=== PATIENT | male | born 1960 | race Caucasian/White ===

== ENCOUNTER 2021-09-01 07:24 | Day surgery (SDC) | payer BC ==
[2021-08-30 10:21] VITALS: BMI 31.4
[~2021-09-01 07:24] MED LIST: LACTATED RINGERS 1,000 ML IV SCH; LIDOCAINE 1% (10MG/ML) FOR IV START INTRADERMA PRN
[2021-09-01 07:45] VITALS: TEMP 98.1
--- NOTE | 2021-09-01 08:17 | P.GSHP ---
History of Present Illness H&P Date: 09/01/21 Chief Complaint: Screening colonoscopy This a 61-year-old male who presents today for screening colonoscopy. Patient denies a significant GI complaints. Past Medical History Past Medical History: Cancer Additional Past Medical History / Comment(s): melanoma skin cancer, states had covid test yesterday that was neg. History of Any Multi-Drug Resistant Organisms: None Reported Past Surgical History: Joint Replacement Additional Past Surgical History / Comment(s): right hip replaced Past Anesthesia/Blood Transfusion Reactions: No Reported Reaction Smoking Status: Former smoker Medications and Allergies Home Medications Medication Instructions Recorded Confirmed Type Multivitamins, Thera [Multivitamin 1 tab PO DAILY 08/30/21 09/01/21 History (formulary)] Berkey-3 Fatty Acids/Fish Oil [Fish 1 each PO DAILY 08/30/21 09/01/21 History Oil 1,000 mg Softgel] Allergies Allergy/AdvReac Type Severity Reaction Status Date / Time No Known Allergies Allergy Verified 09/01/21 07:39 Surgical - Exam Vital Signs Temp Pulse Resp BP Pulse Ox 98.1 F 73 16 125/75 95 09/01/21 07:44 09/01/21 07:44 09/01/21 07:44 09/01/21 07:44 09/01/21 07:44 - General well developed, well nourished, no distress - Eyes PERRL - ENT normal pinna - Neck no masses - Respiratory normal expansion - Cardiovascular Rhythm: regular - Abdomen Abdomen: soft, non tender Assessment and Plan Assessment: We'll perform screening colonoscopy
[2021-09-01] MEDS ORDERED: PROPOFOL 10 MG/ML 20 ML VIAL IV ONE (08:21)
--- NOTE | 2021-09-01 08:50 | P.OP ---
Date of Procedure: 09/01/21 Preoperative Diagnosis: Screen colonoscopy Postoperative Diagnosis: Normal colon Procedure(s) Performed: Colonoscopy Anesthesia: MAC Surgeon: Tommy Rader Pathology: none sent Condition: stable Disposition: PACU Description of Procedure: Patient's placed on the endoscopy table in the lateral position. He received IV sedation. Digital rectal exam was performed which revealed no abnormalities. The prostate was symmetric without nodules. The flexible colonoscope was then placed patient anus passed throughout the colon. The colon was very tortuous. The colon was entered into the right colon. There was a large amount liquid stool in the right colon which limited view of the cecum. No abnormalities were seen. The scope was withdrawn. Remainder the ascending colon, transverse colon, descending colon and sigmoid colon appeared normal. Scope was then withdrawn into the rectum was normal. Scope withdrawn for patient.
[2021-09-01 09:11] VITALS: BP 150/91; PULSE 61; RESP 14
== END 2021-09-01 09:45 | disposition home or self-care (01) ==
LOC: ORWHC2ENDO 07:24
PROVIDERS: ATTEND Surgery
DX: Z12.11 Encounter for screening for malignant neoplasm of colon (principal); Q43.8 Other specified congenital malformations of intestine; Z85.828 Personal history of other malignant neoplasm of skin; Z96.641 Presence of right artificial hip joint; Z87.891 Personal history of nicotine dependence
CPT/HCPCS: J2704; G0121; 45378